=== PATIENT | male | born 1955 | race Caucasian/White ===

== ENCOUNTER 2017-10-14 19:15 | Emergency (ER) | payer MEDICARE ==
[2017-10-14] MEDS ORDERED: Ibuprofen 800 MG TAB ONE (20:07)
[2017-10-14] MEDS ORDERED: Famotidine 20 MG TAB ONE (20:07)
--- NOTE | 2017-10-14 22:23 | RAD ---
ABDOMEN TWO VIEWS CHEST ONE VIEW: History: Pain. Comparison: None. FINDINGS: There is peripheral pleural thickening right midlung with thickening of the right minor fissure. This may be a chronic finding. No focal airspace consolidation. No dilated air filled loops of large or small bowel. Relative paucity of bowel gas. Posterior spinal fusion hardware L1-2. No abnormal calcifications projecting over the renal shadows. IMPRESSION: 1. Likely chronic changes of the right mid lung with peripheral pleural thickening. 2. No acute intraabdominal abnormality. POS: [facility]
== END 2017-10-14 21:08 | disposition home or self-care (01) ==
LOC: MADERS 19:15
DX: K42.9 Umbilical hernia without obstruction or gangrene (principal); E78.5 Hyperlipidemia, unspecified; E11.9 Type 2 diabetes mellitus without complications; G89.29 Other chronic pain; F17.210 Nicotine dependence, cigarettes, uncomplicated; I25.2 Old myocardial infarction; Z79.82 Long term (current) use of aspirin; Z79.899 Other long term (current) drug therapy; Z79.84 Long term (current) use of oral hypoglycemic drugs
CPT/HCPCS: 74022

== ENCOUNTER 2017-11-27 22:47 | Emergency (ER) | payer MEDICARE ==
[2017-11-27] MEDS ORDERED: Ibuprofen 800 MG TAB ONE (23:17)
[2017-11-27] MEDS ORDERED: Acetaminophen 325 MG TAB ONE (23:17)
[2017-11-27] MEDS ORDERED: Cyclobenzaprine 10 MG TAB ONE (23:18)
[2017-11-27] MEDS ORDERED: HYDROcodone/Acetaminophen 10/325 mg Tablet ONE (23:18)
--- NOTE | 2017-11-27 23:44 | RAD ---
ONE VIEW CHEST LEFT RIBS THREE VIEWS: 11/27/17 HISTORY: Injury and pain. COMPARISON: 10/14/17. FINDINGS: CHEST ONE VIEW: Normal cardiac silhouette. Pulmonary vessels and pulmonary hilum are normal. Costophrenic angles are clear. No consolidation or mass. No pneumothorax. Stable postoperative changes in both humeral heads with a solitary screw. LEFT RIBS: No fracture. No cortical irregularity or periosteal reaction. IMPRESSION: 1. No acute cardiopulmonary process. 2. Unremarkable left rib radiograph series. POS: [facility]
== END 2017-11-28 00:52 | disposition home or self-care (01) ==
LOC: MADERS 22:47
DX: S20.212A Contusion of left front wall of thorax, initial encounter (principal); I10 Essential (primary) hypertension; I25.2 Old myocardial infarction; E11.9 Type 2 diabetes mellitus without complications; E78.5 Hyperlipidemia, unspecified; F17.210 Nicotine dependence, cigarettes, uncomplicated; Z79.84 Long term (current) use of oral hypoglycemic drugs; Z79.82 Long term (current) use of aspirin; Z79.899 Other long term (current) drug therapy; V29.9XXA Motorcycle rider (driver) (passenger) injured in unspecified traffic accident, initial encounter

== ENCOUNTER 2018-10-31 08:57 | Emergency (ER) | payer MEDICARE | END 2018-10-31 10:11 | disposition home or self-care (01) | LOC: MADERS 08:57 | DX: K11.20 Sialoadenitis, unspecified (principal); I10 Essential (primary) hypertension; I25.2 Old myocardial infarction; E11.9 Type 2 diabetes mellitus without complications; E78.5 Hyperlipidemia, unspecified; F17.210 Nicotine dependence, cigarettes, uncomplicated; Z79.899 Other long term (current) drug therapy; Z79.82 Long term (current) use of aspirin; Z79.84 Long term (current) use of oral hypoglycemic drugs | CPT/HCPCS: 99283 ==

== ENCOUNTER 2019-01-19 01:24 | Emergency (ER) | payer MEDICARE ==
[2019-01-19] MEDS ORDERED: Ketorolac Tromethamine 60 MG/2 ML VIAL ONE (02:20)
--- NOTE | 2019-01-19 09:31 | RAD ---
LEFT WRIST 3 VIEWS: HISTORY: Trauma. Pain. FINDINGS: There is a displaced ulnar styloid fracture. There is an impacted, comminuted, and posterior angulat ed distal radius fracture. There does not appear to be any obvious intraarticular extension. There is dorsal displacement of the distal radius. With regard to the carpal bones, no evidence of fracture. Intercarpal joint space is not preserved. IMPRESSION: Distal radius and ulnar fracture with associated soft tissue swelling and deformity. POS: [facility]
== END 2019-01-19 02:52 | disposition home or self-care (01) ==
LOC: MADERS 01:24
DX: S52.502A Unspecified fracture of the lower end of left radius, initial encounter for closed fracture (principal); S52.612A Displaced fracture of left ulna styloid process, initial encounter for closed fracture; I25.2 Old myocardial infarction; I10 Essential (primary) hypertension; E78.5 Hyperlipidemia, unspecified; E78.00 Pure hypercholesterolemia, unspecified; E11.9 Type 2 diabetes mellitus without complications; F17.210 Nicotine dependence, cigarettes, uncomplicated; Y04.8XXA Assault by other bodily force, initial encounter
CPT/HCPCS: 29125; 96372; J1885

== ENCOUNTER 2019-10-13 23:10 | Emergency (ER) | payer OTHER, MEDICARE ==
[2019-10-14 00:04] LABS: #Basophils 0.1 thou/uL (0.0-0.2); #Eosinphils 0.3 thou/uL (0.0-0.7); #Lymphocytes 2.4 thou/uL (1.20-3.40); #Monocytes 0.5 thou/uL (0.11-0.59); #Neutrophils 4.6 thou/uL (1.40-6.50); %Basophils 1.8 % (0.0-1.0); %Eosinophils 3.3 % (0.0-10.0); %Lymphocytes 30.8 % (21.0-51.0); %Monocytes 6.3 % (0.0-10.0); %Neutrophils 57.8 % (42.0-75.0); Anisocytosis MODERATE=16-30 cells (100X) (0-5/hpf); Hemoglobin 13.3 g/dL (14.0-18.0); MDiff Complete? YES; Mean Corpuscular HGB CONC 30.5 g/dL (32.0-36.0); Mean Corpuscular Hemoglobin 24.1 pg (27.0-31.0); Mean Platelet Volume 7.9 fL (7.4-10.4); Platelet Count 295 thou/uL (130-400); Polychromasia SLIGHT = 2-3 cells (100X) (0-2/hpf); RBC Distribution Width 15.1 % (11.5-14.5); Red Blood Cell (RBC) Count 5.52 mill/uL (4.70-6.10); White Blood Cell (WBC) Count 7.9 thou/uL (4.8-10.8)
--- NOTE | 2019-10-14 00:07 | RAD ---
XR Chest Pa Lat STANDARD HISTORY: Left-sided chest pain, rib pain COMPARISON: None FINDINGS: The heart size is normal. The lungs are well expanded without focal areas of consolidation, pneumothorax or pleural effusions. There are old left rib fractures.. IMPRESSION: No radiographic evidence of acute cardiopulmonary process.
[2019-10-14 00:12] LABS: ALT (SGPT) 29 U/L (8-55); AST (SGOT) 18 U/L (5-34); Albumin 4.3 g/dL (3.4-4.8); Alkaline Phosphatase 99 U/L (40-110); Anion Gap 19 mmol/L (10-20); BUN (Urea Nitrogen) 13 mg/dL (8.4-25.7); Bilirubin, Total 0.3 mg/dL (0.2-1.2); CK (CPK) 46 U/L (30-200); Calc. Creatinine Clearance 0 mL/min (70-130); Calcium 9.4 mg/dL (7.8-10.44); Carbon Dioxide 21 mmol/L (23-31); Chloride 100 mmol/L (98-107); Estimated GFR-MDRD 59; Globulin 3.8 g/dL (2.4-3.5); Glucose 265 mg/dL (80-115); Lipase 51 U/L (8-78); Potassium 4.8 mmol/L (3.5-5.1); Protein, Total 8.1 g/dL (5.8-8.1); Sodium 135 mmol/L (136-145)
== END 2019-10-14 00:30 | disposition home or self-care (01) ==
LOC: MADERS 23:10
DX: S29.011A Strain of muscle and tendon of front wall of thorax, initial encounter (principal); E78.00 Pure hypercholesterolemia, unspecified; I10 Essential (primary) hypertension; E11.9 Type 2 diabetes mellitus without complications; I25.10 Atherosclerotic heart disease of native coronary artery without angina pectoris; E78.5 Hyperlipidemia, unspecified; F17.210 Nicotine dependence, cigarettes, uncomplicated; Z79.899 Other long term (current) drug therapy; Z79.84 Long term (current) use of oral hypoglycemic drugs; X58.XXXA Exposure to other specified factors, initial encounter
CPT/HCPCS: 36415; 71046; 80053; 82550; 83690; 84484; 85025; 93005

== ENCOUNTER 2020-02-28 13:06 | Emergency (ER) | payer MEDICARE, OTHER ==
[2020-02-28] MEDS ORDERED: Amoxicillin/Potassium Clav 875 MG TAB ONE (13:49)
== END 2020-02-28 14:03 | disposition home or self-care (01) ==
LOC: MADERS 13:06
DX: L02.01 Cutaneous abscess of face (principal); E11.9 Type 2 diabetes mellitus without complications; E78.5 Hyperlipidemia, unspecified; I10 Essential (primary) hypertension; E78.00 Pure hypercholesterolemia, unspecified; I25.2 Old myocardial infarction; F17.210 Nicotine dependence, cigarettes, uncomplicated; Z79.899 Other long term (current) drug therapy
CPT/HCPCS: 10060

== ENCOUNTER 2020-07-07 06:35 | Emergency (ER) | payer MEDICARE ==
[2020-07-07 07:09] LABS: #Basophils 0.1 thou/uL (0.0-0.2); #Eosinphils 0.4 thou/uL (0.0-0.7); #Lymphocytes 1.7 thou/uL (1.20-3.40); #Monocytes 0.9 thou/uL (0.11-0.59); #Neutrophils 11.3 thou/uL (1.40-6.50); %Eosinophils 2.6 % (0.0-10.0); %Lymphocytes 11.6 % (21.0-51.0); %Monocytes 6.3 % (0.0-10.0); %Neutrophils 78.5 % (42.0-75.0); Hemoglobin 13.3 g/dL (14.0-18.0); Mean Corpuscular HGB CONC 31.2 g/dL (32.0-36.0); Mean Corpuscular Hemoglobin 24.9 pg (27.0-31.0); Mean Corpuscular Volume 79.6 fL (78.0-98.0); Mean Platelet Volume 7.1 fL (7.4-10.4); Platelet Count 315 thou/uL (130-400); RBC Distribution Width 14.1 % (11.5-14.5); Red Blood Cell (RBC) Count 5.35 mill/uL (4.70-6.10); White Blood Cell (WBC) Count 14.4 thou/uL (4.8-10.8)
[2020-07-07 07:13] LABS: Platelet Morphology Comment Appears Adequate; RBC Morphology Normal
[2020-07-07 07:19] LABS: ALT (SGPT) 18 U/L (8-55); AST (SGOT) 17 U/L (5-34); Albumin 4.1 g/dL (3.4-4.8); Alkaline Phosphatase 77 U/L (40-110); Anion Gap 20 mmol/L (10-20); BUN (Urea Nitrogen) 7 mg/dL (8.4-25.7); Bilirubin, Total 0.4 mg/dL (0.2-1.2); CK (CPK) 55 U/L (30-200); Calc. Creatinine Clearance 0 mL/min (70-130); Calcium 8.4 mg/dL (7.8-10.44); Carbon Dioxide 18 mmol/L (23-31); Chloride 104 mmol/L (98-107); Globulin 3.1 g/dL (2.4-3.5); Glucose 297 mg/dL (80-115); Potassium 3.9 mmol/L (3.5-5.1); Protein, Total 7.2 g/dL (5.8-8.1); Sodium 138 mmol/L (136-145)
[2020-07-07] MEDS ORDERED: Insulin Regular 300 UNITS/3 ML VIAL ONE (07:38)
[2020-07-07] MEDS ORDERED: SUMAtriptan Succinate 6 MG/0.5 ML VIAL ONE (07:38)
--- NOTE | 2020-07-07 07:49 | RAD ---
Chest AP view INDICATION: History of dyspnea COMPARISON: October 13, 2019 FINDINGS: Lungs: There is prominent interstitial opacities bilaterally Cardiac silhouette: There is worsening mild cardiomegaly Pulmonary vasculature: There is mild pulmonary vascular congestion Pleural spaces: There are tiny bilateral pleural effusions Upper abdomen: No abnormality seen. Osseous structures: Instrumentation right glenoid is stable. Additional findings: None. IMPRESSION: Cardiomegaly, pulmonary vascular congestion and interstitial opacities with small bilateral pleural e ffusions is suspicious for mild CHF
[2020-07-07] MEDS ORDERED: Sodium Chloride 0.9% 100 ML BAG ONE (08:08)
--- NOTE | 2020-07-07 08:37 | CT ---
EXAM: CTA of the chest HISTORY: Shortness of breath COMPARISON: None TECHNIQUE: Multiple contiguous axial images were obtained a CTA of the chest with contrast per pulmon sindy embolism protocol. 3-D oblique MIP reformats and direct coronal reformats were performed. FINDINGS: HEART: Normal in size without focal cardiac abnormality. PULMONARY ARTERIES: Normal in caliber without filling defects to suggest pulmonary emboli. MEDIASTINUM: There are nonspecific prominent subcarinal lymph nodes measuring up to 2.6 cm in size. LUNGS: No focal infiltrates or masses. There is bilateral dependent atelectasis. PLEURAL SPACE: No pleural effusion or pneumothorax. CHEST WALL SOFT TISSUES: Unremarkable VISUALIZED OSSEOUS STRUCTURES: Degenerative and postsurgical changes in the spine. There is a remote nonhealed left lateral rib fracture. VISUALIZED SUBDIAPHRAGMATIC STRUCTURES: There appears to be diffuse fatty infiltration of the liver. A small area of hyperenhancement in the right lobe of the liver may represent a portal venous shunt. IMPRESSION: 1. No evidence of pulmonary thromboembolism 2. Nonspecific subcarinal lymphadenopathy. 3. Fatty liver
[2020-07-07] MEDS ORDERED: Sodium Chloride 0.9% 100 ML ONE (08:50)
[2020-07-07] MEDS ORDERED: cefTRIAXone\\ROCEPHIN 2 GM VIAL ONE (08:50)
[2020-07-07] MEDS ORDERED: Furosemide 40 MG/4 ML VIAL ONE (08:50)
[2020-07-07] MEDS ORDERED: methylPREDNISolone Sod Succ/PF 125 MG/2 ML VIAL ONE (08:50)
[2020-07-07] MEDS ORDERED: Iopamidol 370 76% 125 ML VIAL FS ONE (14:00)
== END 2020-07-07 10:55 | disposition short-term general hospital (02) ==
LOC: MADERS 06:35
DX: J81.1 Chronic pulmonary edema (principal); J44.9 Chronic obstructive pulmonary disease, unspecified; E11.65 Type 2 diabetes mellitus with hyperglycemia; E78.5 Hyperlipidemia, unspecified; E78.00 Pure hypercholesterolemia, unspecified; I10 Essential (primary) hypertension; I25.2 Old myocardial infarction; F17.210 Nicotine dependence, cigarettes, uncomplicated; Z79.82 Long term (current) use of aspirin; Z79.899 Other long term (current) drug therapy; Z79.84 Long term (current) use of oral hypoglycemic drugs
CPT/HCPCS: 71045; 71275; 80053; 82550; 83880; 84484; 85025; 85379; 93005; 96365; 96375; J0696; J1815; J1940; J2930; J3030; J3490; Q9967

== ENCOUNTER 2020-07-19 11:56 | Outpatient (CLI) | payer MEDICARE ==
[2020-07-19 13:01] LABS: #Basophils 0.1 thou/uL (0.0-0.2); #Eosinphils 0.2 thou/uL (0.0-0.7); #Lymphocytes 1.8 thou/uL (1.20-3.40); #Monocytes 0.5 thou/uL (0.11-0.59); #Neutrophils 4.8 thou/uL (1.40-6.50); %Basophils 1.5 % (0.0-1.0); %Eosinophils 2.9 % (0.0-10.0); %Lymphocytes 24.7 % (21.0-51.0); %Monocytes 6.5 % (0.0-10.0); %Neutrophils 64.4 % (42.0-75.0); Hemoglobin 13.7 g/dL (14.0-18.0); Mean Corpuscular HGB CONC 30.7 g/dL (32.0-36.0); Mean Corpuscular Hemoglobin 24.6 pg (27.0-31.0); Mean Corpuscular Volume 80.3 fL (78.0-98.0); Mean Platelet Volume 7.1 fL (7.4-10.4); Platelet Count 262 thou/uL (130-400); RBC Distribution Width 14.2 % (11.5-14.5); Red Blood Cell (RBC) Count 5.59 mill/uL (4.70-6.10); White Blood Cell (WBC) Count 7.4 thou/uL (4.8-10.8)
[2020-07-19 13:16] LABS: ALT (SGPT) 21 U/L (8-55); AST (SGOT) 14 U/L (5-34); Albumin 4.5 g/dL (3.4-4.8); Alkaline Phosphatase 77 U/L (40-110); Anion Gap 17 mmol/L (10-20); BUN (Urea Nitrogen) 11 mg/dL (8.4-25.7); Bilirubin, Total 0.4 mg/dL (0.2-1.2); Calc. Creatinine Clearance 0 mL/min (70-130); Calcium 9.8 mg/dL (7.8-10.44); Carbon Dioxide 24 mmol/L (23-31); Cardiac Risk 6.5 (Less than 4.5); Chloride 100 mmol/L (98-107); Cholesterol 183 mg/dl (< 200 Desired); Globulin 2.8 g/dL (2.4-3.5); Glucose 334 mg/dL (80-115); HDL Cholesterol 28 mg/dL (>60 Neg Risk); LDL Cholesterol, Calculated 89 mg/dL; Potassium 5.6 mmol/L (3.5-5.1); Protein, Total 7.3 g/dL (5.8-8.1); Sodium 135 mmol/L (136-145); Triglycerides 332 mg/dL (Less than 150)
[2020-07-19 17:01] LABS: Hemoglobin A1c 11.2 % (4.0-6.0)
== END 2020-07-19 11:57 | disposition home or self-care (01) ==
LOC: MADLAB 11:56
PROVIDERS: ATTEND Family Medicine
DX: E78.5 Hyperlipidemia, unspecified (principal); E11.65 Type 2 diabetes mellitus with hyperglycemia; I10 Essential (primary) hypertension
CPT/HCPCS: 36415; 80053; 80061; 83036; 85025

== ENCOUNTER 2021-02-23 14:47 | Outpatient (CLI) | payer MEDICARE | END 2021-02-23 14:48 | disposition home or self-care (01) | LOC: MADRAD 14:47 | PROVIDERS: ATTEND Family Medicine | DX: M25.512 Pain in left shoulder (principal); R07.89 Other chest pain; M19.012 Primary osteoarthritis, left shoulder | CPT/HCPCS: 71046 ==

== ENCOUNTER 2021-05-11 11:41 | Emergency (ER) | payer MEDICARE ==
[2021-05-11] MEDS ORDERED: Iopamidol 370 76% 125 ML VIAL FS ONE (11:42)
[2021-05-11] MEDS ORDERED: Ibuprofen 800 MG TAB ONE (13:30)
[2021-05-11 14:21] LABS: #Basophils 0.1 thou/uL (0.0-0.2); #Lymphocytes 0.8 thou/uL (1.20-3.40); #Monocytes 0.6 thou/uL (0.11-0.59); #Neutrophils 5.5 thou/uL (1.40-6.50); %Basophils 1.3 % (0.0-1.0); %Eosinophils 0.1 % (0.0-10.0); %Lymphocytes 11.2 % (21.0-51.0); %Monocytes 9.1 % (0.0-10.0); %Neutrophils 78.4 % (42.0-75.0); ALT (SGPT) 15 U/L (8-55); AST (SGOT) 31 U/L (5-34); Albumin 4.5 g/dL (3.4-4.8); Alkaline Phosphatase 73 U/L (40-110); Anion Gap 17 mmol/L (10-20); Anisocytosis SLIGHT = 6-15 cells (100X) (0-5/hpf); BUN (Urea Nitrogen) 9 mg/dL (8.4-25.7); Bilirubin, Total 0.4 mg/dL (0.2-1.2); CRP (Inflammatory) 5.46 mg/dL (= or < 0.5); Calc. Creatinine Clearance 0 mL/min (70-130); Carbon Dioxide 21 mmol/L (23-31); Chloride 95 mmol/L (98-107); Globulin 3.6 g/dL (2.4-3.5); Glucose 306 mg/dL (80-115); Hemoglobin 12.5 g/dL (14.0-18.0); MDiff Complete? YES; Mean Corpuscular HGB CONC 30.3 g/dL (32.0-36.0); Mean Corpuscular Hemoglobin 23.2 pg (27.0-31.0); Mean Corpuscular Volume 76.7 fL (78.0-98.0); Mean Platelet Volume 6.9 fL (7.4-10.4); Microcytosis SLIGHT = 6-15 cells (100X) (0-5/hpf); Platelet Count 256 thou/uL (130-400); Platelet Morphology Comment Appears Adequate; Potassium 4.1 mmol/L (3.5-5.1); Protein, Total 8.1 g/dL (5.8-8.1); RBC Distribution Width 14.6 % (11.5-14.5); Red Blood Cell (RBC) Count 5.39 mill/uL (4.70-6.10); Sodium 129 mmol/L (136-145)
[2021-05-11] MEDS ORDERED: Dexamethasone 10 MG/ML VIAL ONE (15:53)
[2021-05-12 14:09] LABS: SARS-CoV-2 PCR by NAA DETECTED (NotDetected)
== END 2021-05-11 16:10 | disposition home or self-care (01) ==
LOC: MADERS 11:41
DX: U07.1 COVID-19 (principal); J44.1 Chronic obstructive pulmonary disease with (acute) exacerbation; J20.8 Acute bronchitis due to other specified organisms; I10 Essential (primary) hypertension; E11.9 Type 2 diabetes mellitus without complications; E78.5 Hyperlipidemia, unspecified; I25.2 Old myocardial infarction; E78.00 Pure hypercholesterolemia, unspecified; F17.210 Nicotine dependence, cigarettes, uncomplicated; Z79.84 Long term (current) use of oral hypoglycemic drugs; Z79.82 Long term (current) use of aspirin
CPT/HCPCS: 71045; 71275; 80053; 82550; 83605; 84484; 85025; 85379; 86140; 87804 ×2; 93005; 94760; 96374; 99284; U0003; U0005; J1100; Q9967

== ENCOUNTER 2022-05-01 12:32 | Outpatient (CLI) | payer OTHER | END 2022-05-01 12:33 | disposition home or self-care (01) | LOC: MADLAB 12:32 | PROVIDERS: ATTEND Internal Medicine | DX: J44.1 Chronic obstructive pulmonary disease with (acute) exacerbation (principal); J98.4 Other disorders of lung; S22.42XA Multiple fractures of ribs, left side, initial encounter for closed fracture | CPT/HCPCS: 71046 ==

== ENCOUNTER 2023-02-11 10:37 | Emergency (ER) | payer MEDICARE ==
[2023-02-11 11:36] LABS: ALT (SGPT) 29 U/L (8-55); AST (SGOT) 142 U/L (5-34); Albumin 3.1 g/dL (3.4-4.8); Alkaline Phosphatase 770 U/L (40-110); Anion Gap 20 mmol/L (10-20); BUN (Urea Nitrogen) 18 mg/dL (8.4-25.7); Calc. Creatinine Clearance 0 mL/min (70-130); Calcium 9.7 mg/dL (7.8-10.44); Carbon Dioxide 18 mmol/L (23-31); Chloride 99 mmol/L (98-107); Estimated GFR 103; Globulin 2.8 g/dL (2.4-3.5); Glucose 113 mg/dL (80-115); Potassium 3.9 mmol/L (3.5-5.1); Protein, Total 5.9 g/dL (5.8-8.1); Sodium 133 mmol/L (136-145); Troponin I 0.015 ng/mL (< 0.028)
[2023-02-11 11:38] LABS: #Basophils 0.1 thou/uL (0.0-0.2); #Lymphocytes 0.8 thou/uL (1.20-3.40); #Monocytes 0.7 thou/uL (0.11-0.59); #Neutrophils 10.2 thou/uL (1.40-6.50); %Basophils 0.5 % (0.0-1.0); %Eosinophils 0.3 % (0.0-10.0); %Lymphocytes 6.8 % (21.0-51.0); %Monocytes 5.7 % (0.0-10.0); %Neutrophils 86.8 % (42.0-75.0); Anisocytosis SLIGHT = 6-15 cells (100X) (0-5/hpf); Hematocrit 34.8 % (42.0-52.0); Hemoglobin 10.8 g/dL (14.0-18.0); Hypochromia SLIGHT = 6-15 cells (100X) (0-5/hpf); Mean Corpuscular Hemoglobin 23.6 pg (27.0-31.0); Mean Corpuscular Volume 76.3 fl (78.0-98.0); Mean Platelet Volume 7.1 fL (7.4-10.4); Microcytosis SLIGHT = 6-15 cells (100X) (0-5/hpf); Platelet Count 449 10x3/uL (130-400); Polychromasia SLIGHT = 2-3 cells (100X) (0-2/hpf); RBC Distribution Width 18.4 % (11.5-14.5); Red Blood Cell (RBC) Count 4.56 mill/uL (4.70-6.10); White Blood Cell (WBC) Count 11.8 10x3/uL (4.8-10.8)
[2023-02-11] MEDS ORDERED: Sodium Chloride 0.9% 500 ML ONE (11:50)
[2023-02-11] MEDS ORDERED: cefTRIAXone (ROCEPHIN) 2 GM VIAL ONE (12:06)
[2023-02-11] MEDS ORDERED: Sodium Chloride 0.9% 100 ML ONE (12:06)
[2023-02-11 12:32] LABS: Bilirubin Small (Negative); Blood, Urine Moderate (Negative); Glucose, Urine (Dipstick) Negative (Negative); Ketone, Urine 40 mg/dL (Negative); Leukocyte Small (Negative); Nitrite Positive (Negative); Protein, Urine (Dipstick) 100 mg/dL (Neg-Trace); Urobilinogen 0.2 mg/dL (Less than 2); pH, Urine 5.5 (5.0-9.0)
[2023-02-11 12:33] LABS: Clarity Very Cloudy (Clear)
[2023-02-11 12:39] LABS: CAUTI Indications for Culture Dysuria,urgency,freq; Squamous Epithelial 0-3 HPF (0-3); WBC/HPF Greater Than 50 HPF (0-3)
[2023-02-11 12:40] LABS: Bacteria/HPF 2+ HPF (None Seen); Urine Culture Reflex Yes Yes
[2023-02-11] MEDS ORDERED: Nicotine 7 MG PATCH ONE (14:21)
[2023-02-11 14:40] LABS: SARS-CoV-2 NAA Rapid Test Not Detected (NotDetected)
== END 2023-02-11 14:25 | disposition short-term general hospital (02) ==
LOC: MADERS 10:37
DX: A41.9 Sepsis, unspecified organism (principal); R65.20 Severe sepsis without septic shock; N39.0 Urinary tract infection, site not specified; R44.3 Hallucinations, unspecified; C22.9 Malignant neoplasm of liver, not specified as primary or secondary; E11.9 Type 2 diabetes mellitus without complications; I10 Essential (primary) hypertension; J44.9 Chronic obstructive pulmonary disease, unspecified; Z79.4 Long term (current) use of insulin; E78.5 Hyperlipidemia, unspecified; F17.210 Nicotine dependence, cigarettes, uncomplicated; Z20.822 Contact with and (suspected) exposure to COVID-19
CPT/HCPCS: 70450; 71045; 80053; 81001; 82140; 83605; 83735; 83880; 84484; 85025; 87040; 87086; 93005; U0002; 87077; 87186; 96365; J0696; J3490; J7030

== ENCOUNTER 2023-02-16 15:20 | Inpatient (IN) | payer MEDICARE ==
[2023-02-16] MEDS ORDERED: Metoprolol Tartrate 25 MG TAB PO SCH (21:00)
[2023-02-16 22:37] VITALS: BMI 22.8
[2023-02-17] MEDS: ALPRAZolam 0.25 MG TAB PO PRN ×3 (05:12→20:21)
[2023-02-17] MEDS: Ferrous Sulfate 325 MG TAB PO SCH (08:31)
[2023-02-17] MEDS: Aspirin 325 MG TAB PO SCH (08:31)
[2023-02-17] MEDS: Dronabinol 2.5 MG CAP PO SCH ×2 (08:31→17:04)
[2023-02-17] MEDS: Metoprolol Tartrate 25 MG TAB PO SCH ×2 (08:31→20:22)
[2023-02-17] MEDS ORDERED: Alogliptin 25 MG TAB PO SCH (09:00)
[2023-02-17] MEDS ORDERED: LACTOSE REDUCED FOOD PO SCH (09:00)
[2023-02-17] MEDS ORDERED: Glucagon 1 MG/ML KIT IM PRN (14:40)
[2023-02-17] MEDS ORDERED: Dextrose 50% Abboject 50 ML SYRINGE SLOW IVP PRN (14:40)
[2023-02-17] MEDS ORDERED: Ipratropium/Albuterol 3 ML NEB NEB PRN (17:53)
[2023-02-17] MEDS: Carbamide Peroxide 6.5% Otic Drops 15 ml Bottle EA EAR SCH (20:21)
[2023-02-18] MEDS: Metoprolol Tartrate 25 MG TAB PO SCH ×2 (09:15→19:44)
[2023-02-18] MEDS: Dronabinol 2.5 MG CAP PO SCH ×2 (09:15→17:14)
[2023-02-18] MEDS: Ferrous Sulfate 325 MG TAB PO SCH (09:15)
[2023-02-18] MEDS: Aspirin 325 MG TAB PO SCH (09:15)
[2023-02-18] MEDS: Carbamide Peroxide 6.5% Otic Drops 15 ml Bottle EA EAR SCH ×2 (09:16→20:57)
[2023-02-18] MEDS: Calcium Carbonate 500 MG ChewTAB PO PRN (22:49)
[2023-02-19 05:23] LABS: Hematocrit 28.4 % (42.0-52.0); Hemoglobin 8.8 g/dL (14.0-18.0); Mean Corpuscular HGB CONC 31.2 g/dL (32.0-36.0); Mean Corpuscular Hemoglobin 24.5 pg (27.0-31.0); Mean Corpuscular Volume 78.4 fl (78.0-98.0); Mean Platelet Volume 6.8 fL (7.4-10.4); Platelet Count 341 10x3/uL (130-400); RBC Distribution Width 20.2 % (11.5-14.5); Red Blood Cell (RBC) Count 3.62 mill/uL (4.70-6.10); White Blood Cell (WBC) Count 7.9 10x3/uL (4.8-10.8)
[2023-02-19 05:40] LABS: ALT (SGPT) 19 U/L (8-55); AST (SGOT) 96 U/L (5-34); Albumin 2.6 g/dL (3.4-4.8); Alkaline Phosphatase 723 U/L (40-110); Anion Gap 17 mmol/L (10-20); BUN (Urea Nitrogen) 9 mg/dL (8.4-25.7); Bilirubin, Total 1.6 mg/dL (0.2-1.2); Calc. Creatinine Clearance 108 mL/min (70-130); Calcium 8.3 mg/dL (7.8-10.44); Carbon Dioxide 17 mmol/L (23-31); Chloride 106 mmol/L (98-107); Estimated GFR 105; Globulin 3.3 g/dL (2.4-3.5); Glucose 107 mg/dL (80-115); Potassium 3.8 mmol/L (3.5-5.1); Protein, Total 5.9 g/dL (5.8-8.1); Sodium 136 mmol/L (136-145)
[2023-02-19] MEDS: Aspirin 325 MG TAB PO SCH (08:03)
[2023-02-19] MEDS: Metoprolol Tartrate 25 MG TAB PO SCH ×2 (08:03→20:19)
[2023-02-19] MEDS: Loratadine 10 MG TAB PO SCH (08:03)
[2023-02-19] MEDS: Dronabinol 2.5 MG CAP PO SCH ×2 (08:03→17:04)
[2023-02-19] MEDS: Ferrous Sulfate 325 MG TAB PO SCH (08:03)
[2023-02-19] MEDS: Carbamide Peroxide 6.5% Otic Drops 15 ml Bottle EA EAR SCH ×2 (08:04→20:19)
[2023-02-19] MEDS: Calcium Carbonate 500 MG ChewTAB PO PRN (18:13)
[2023-02-20] MEDS: Dronabinol 2.5 MG CAP PO SCH ×2 (08:00→16:23)
[2023-02-20] MEDS: Loratadine 10 MG TAB PO SCH (08:00)
[2023-02-20] MEDS: Carbamide Peroxide 6.5% Otic Drops 15 ml Bottle EA EAR SCH ×2 (08:00→22:18)
[2023-02-20] MEDS: Metoprolol Tartrate 25 MG TAB PO SCH ×2 (08:00→22:16)
[2023-02-20] MEDS: Aspirin 325 MG TAB PO SCH (08:00)
[2023-02-20] MEDS: Ferrous Sulfate 325 MG TAB PO SCH (08:00)
[2023-02-21 07:46] VITALS: BP 100/62; TEMP 97.7
[2023-02-21] MEDS: Carbamide Peroxide 6.5% Otic Drops 15 ml Bottle EA EAR SCH (08:38)
[2023-02-21] MEDS: Metoprolol Tartrate 25 MG TAB PO SCH (08:39)
[2023-02-21] MEDS: Aspirin 325 MG TAB PO SCH (08:39)
[2023-02-21] MEDS: Dronabinol 2.5 MG CAP PO SCH (08:40)
[2023-02-21] MEDS: Loratadine 10 MG TAB PO SCH (08:44)
[2023-02-21] MEDS: Ferrous Sulfate 325 MG TAB PO SCH (08:44)
== END 2023-02-21 11:31 | disposition hospice, home (50) | DRG 948 ==
LOC: MADMS 22:15
PROVIDERS: ADMIT Family Medicine; ATTEND Family Medicine
DX: R53.81 Other malaise (principal); C22.0 Liver cell carcinoma; R53.1 Weakness; Z66 Do not resuscitate; E11.9 Type 2 diabetes mellitus without complications; I10 Essential (primary) hypertension; J44.9 Chronic obstructive pulmonary disease, unspecified; I25.10 Atherosclerotic heart disease of native coronary artery without angina pectoris; R41.82 Altered mental status, unspecified; R44.1 Visual hallucinations; D50.9 Iron deficiency anemia, unspecified; R63.0 Anorexia; I95.9 Hypotension, unspecified; K74.60 Unspecified cirrhosis of liver; W10.9XXD Fall (on) (from) unspecified stairs and steps, subsequent encounter; I25.2 Old myocardial infarction; Z68.22 Body mass index [BMI] 22.0-22.9, adult; Z79.82 Long term (current) use of aspirin; Z79.899 Other long term (current) drug therapy; Z98.890 Other specified postprocedural states; Z87.891 Personal history of nicotine dependence; Z87.898 Personal history of other specified conditions
CPT/HCPCS: 36415; 36416; 80053; 82140; 85027; Q0167